=== PATIENT | male | born 1975 | race Caucasian/White ===

== ENCOUNTER 2017-02-18 12:33 | Emergency (ER) | payer OTHER ==
[~2017-02-18] VITALS: Ht 167.6 cm; Wt 92.1 kg
[~2017-02-18 12:33] MED LIST: DAY TIME COLD-237 ML PO; FLAGYL500 MG PO; LORTAB 5-325 M1 EACH PO; MEDROL DOSEPAK4 MG PO
[2017-02-18] MEDS ORDERED: MOTRIN800 MG PO (14:39)
[2017-02-18] MEDS ORDERED: KEFLEX500 MG PO (14:39)
[2017-02-18 14:48] VITALS: BP 129/91
== END 2017-02-18 14:50 | disposition home or self-care (01) ==
LOC: EME 12:33
PROC: 3E0234Z Introduction of Serum, Toxoid and Vaccine into Muscle, Percutaneous Approach (ICD-10-PCS; principal; 2017-02-18)
DX: S61.532A Puncture wound without foreign body of left wrist, initial encounter (principal); W27.8XXA Contact with other nonpowered hand tool, initial encounter; Y93.89 Activity, other specified; Z23 Encounter for immunization
CPT/HCPCS: 73110; 99281; 99284

== ENCOUNTER 2018-03-02 10:11 | Emergency (ER) | payer OTHER ==
[~2018-03-02] VITALS: Ht 167.6 cm; Wt 94.2 kg
[~2018-03-02 10:11] MED LIST changes: +KEFLEX500 MG PO; +MOTRIN800 MG PO
[2018-03-02 10:33] LABS: SOURCE URINE
[2018-03-02 10:37] LABS: APPEARANCE CLEAR ((CLEAR)); BILIRUBIN NEGATIVE; BLOOD NEGATIVE; COLOR YELLOW ((YELLOW)); GLUCOSE (STRIP) NEGATIVE; KETONES NEGATIVE; LEUKOCYTES SMALL; NITRITE NEGATIVE; PROTEIN (STRIP) NEGATIVE; SPECIFIC GRAVITY 1.023 (1.000-1.030); UROBILINOGEN 0.2 MG/DL (0.2-1.0)
[2018-03-02 10:43] LABS: BACTERIA RARE /HPF; EPITHELIAL CELLS NONE SEEN /HPF; MUCUS TRACE /LPF; RED BLOOD CELLS 0-5 /HPF (0-5); UCUL ADDED? YES; WHITE BLOOD CELLS 15-20 /HPF (0-5)
[2018-03-02] MEDS ORDERED: VIBRAMYCIN100 MG PO (13:00)
[2018-03-02 13:18] VITALS: BP 128/91
[2018-03-03 12:41] LABS: CHLAMYDIA TRACHOMATIS NEGATIVE; NEISSERIA GONORRHOEAE NEGATIVE
== END 2018-03-02 13:20 | disposition home or self-care (01) ==
LOC: EME 10:11
DX: N45.1 Epididymitis (principal); R36.9 Urethral discharge, unspecified; Z87.891 Personal history of nicotine dependence
CPT/HCPCS: 76870; 81003; 87086; 87491; 87591; 99281; 99283; J0696